=== PATIENT | female | born 1935 | race Caucasian/White ===

== ENCOUNTER 2016-09-22 21:06 | Inpatient (IN) | payer MEDICARE ==
[~2016-09-22] VITALS: Ht 154.9 cm; Wt 49.1 kg
[~2016-09-22 21:06] MED LIST: ALLEGRA-D 2424 HOUR PO; AMPHOTERICIN B NAB; ASPIRIN LOW DOS81 M2 PO; B-12250 MCG PO; BL ADULT ASA81 MG OR; BYSTOLIC5 MG PO; CALCIUM600 M1 PO; CHOLESTERO4 PO; CIPROFLOXACN500 MG PO; CLOPIDOGREL75 MG PO; COMBIVENT IN; COMBIVENT RESPIMAT IN; COUMADIN2.5 MG PO; COUMADIN5 MG PO; COUMADIN7.5 MG PO; CYCLOBENZAPR5 MG PO; DEPO-MEDROL40 MG/ML IJ; DIFLUCAN100 MG PO; DIGITEK0.125 MG PO; DIGOXIN0.125 MG PO; ECOTRIN325 MG OR; FLAX SEED1000 MG PO; FUROSEMIDE20 MG PO; GLUCOSAMINE1500 COM PO; ISRADIPINE2.5 MG PO; KLOR-CON M2020 MEQ PO; LIBRIUM25 MG OR; LORCET PLUS1 TAB OR; LORTAB 1010 MG PO; LOTRISONE TOP; MAXZIDE-2537.5 MG/TA PO; MICARDIS20 MG PO; MULTIVITAM10 PO; NITRO-DUR0.2 MG/HR TD; NITRO-DUR0.4 MG/HR TD; NORCO1 TA1 PO; NORCO1 TAB PO; NYSTATIN TOP; NYSTATIN100000 M4 TOP; PAROXETINE20 MG PO; PLAVIX75 MG PO; PRAMIPEXOLE0.5 MG PO; PROAIR HFA IN; PROCARDIA XL30 MG PO; PROTONIX40 M2 PO; PULMICORT0.25 MG/2 IN; PULMICORT180 MCG IN; QUESTRAN OR; ROXICET1 TA1 OR; SPIRIVA IN; SPIRIVA RE2.5 MCG/AC; SPIRIVA RE2.5 MCG/AC PO; SYNTHROID PO; SYNTHROID25 MCG PO; TIZANIDINE HCL2 M1 PO; TRAZODONE50 MG PO; TRIAM/NYSTAT TOP; TRIAMCINOLON0.11 EX; VITAMIN B-1250 MG PO; WARFARIN1 MG PO; WARFARIN2.5 MG PO; WARFARIN4 MG PO; WARFARIN5 MG PO; XANAX0.25 MG PO; XANAX0.5 MG PO; ZPAK PO; [UNRECOGNIZED DRUG - OTHER] VA
--- NOTE | 2016-09-22 21:10 | NUR ---
PT WHEELED STRAIGHT BACK TO ROOM 9 AND TRIAGED, EKG DONE. PT HAS FINE RASH UNDER LEFT BREAST THAT SPREADS TO RIGHT AND UP TO MID CHEST AND UNDER LEFT AXILLA. OBVIOUSLY PT HAS BEEN SCRATCHING. PT ALSO COMPLAINING OF PRESSURE TO CHEST. PT HAS HX OF MULTIPLE STENTS
[2016-09-22 21:50] LABS: HEMATOCRIT 35.3 % (37.0-47.0); HEMOGLOBIN 12.2 g/dl (12.0-16.0); IMMATURE GRANULOCYTES 0.6 % (0.0-1.0); MEAN CELL VOLUME 88.5 fL CALC (80.0-100.0); MEAN CORPUSCULAR HGB 30.6 pG CALC (26.0-32.0); MEAN CORPUSCULAR HGB CONC 34.6 g/L CALC (32.0-36.0); NEUT# 3.38 thou/uL (2.00-7.15); RED BLOOD COUNT 3.99 mill/uL (4.20-5.60); RED CELL DISTRI WIDTH 12.2 % (11.5-15.5)
--- NOTE | 2016-09-22 21:50 | NUR ---
PT HAS LONG LIST OF "ALLERGIES". DR ORDERED CATAPRES FOR PT DUE TO ELEVATED BP AND PT HAS MEDICATION LISTED ALLERGY BUT REACTION IS "FEELS TIRED" INSTRUCTED PT THAT IS NOT ALLERGY AND PT NEEDS MEDICATION TO LOWER BP AND SHE REFUSED NTG. PT AGREED TO TAKE MEDS.
[2016-09-22 21:53] LABS: ALBUMIN 5.2 g/dL (3.2-5.0); BILIRUBIN, TOTAL 0.9 mg/dL (0.0-1.4); CALCIUM 9.7 mg/dL (8.4-10.2); CREATININE 1.3 mg/dL (0.5-1.0); POTASSIUM 3.7 mmol/l (3.5-5.1); TOTAL PROTEIN 8.8 g/dL (6.3-8.2)
[2016-09-22 21:58] LABS: INTERNATIONAL NORMALIZED RATIO 1.9 RATIO (0.7-1.3); PROTHROMBIN TIME 21.3 SECONDS (9.0-12.5)
[2016-09-22 22:06] LABS: DIGOXIN 1.5 ng/mL (0.8-2.0)
--- NOTE | 2016-09-22 22:29 | NUR ---
B/P DOWN TO 182/88. PT POSSIBLE ADMISSION
--- NOTE | 2016-09-22 23:08 | NUR ---
PT TO BE ADMITTED. DR KINCAID IN WITH PT NOW. CHECKED ON PT 10 MINUTES AGO AND PT ALL UPSET DUE TO STILL ITCHING. PT'S ORIGINAL COMPLAINT WAS RASH. INFORMED PT SHE IS TO BE ADMITTED TO THE HOSPITAL AND WILL SPEAK WITH DR KINCAID ABOUT ORDERING HER BENADRYL
[2016-09-22] MEDS ORDERED: EFFIENT5 MG PO (23:20)
--- NOTE | 2016-09-22 23:45 | NUR ---
Admission Note Report Given to: LOGAN PARADA Transported by: Wheelchair X Stretcher Transported with: X Nurse Transporter X Patent IV X O2 X Freight Traffic Consultant PT REQUESTED HER EVENING XANAX DOSE, DR KINCAID STATED HE WOULD ORDER ONE TIME DOSE FOR THE FLOOR
--- NOTE | 2016-09-22 23:48 | NUR ---
female pt received to ICU bed 4 via stretcher accompanied by Trisha WillRN in stable condition; [place] [facility] [place] with steady gait; admission assessment completed at this time; pt alert and oriented; c/c of rash to epigastric area X4 days (pt relates rash to recently starting effient); pt also with complaints of left chest pressure; denies nausea/ vomiting/ diaphoresis; states pressure radiates to bilat jaw bone; resp even and unlabored; lungs clear; skin color wnl; o2 per nc; hr irreg; paced/ occ underline afib on monitor; strong pulses; no edema noted; abd soft with bs present; no bm noted per senior writer; voiding with difficultly starting stream and pain; urine clear yellow; #20 in lac flushed and patent; no redness or edema noted at site; plan of care/ xanax explained; rash noted to epigastric area; pt encouraged to use call light; will continue to monitor
[2016-09-23] VITALS (10 sets, daily range): BP systolic 126–195; BP diastolic 68–92
--- NOTE | 2016-09-23 00:20 | NUR ---
awake; no distress noted; iv intact; afib/occ paced on monitor; o2 per nc; call light within reach; will continue to monitor
--- NOTE | 2016-09-23 00:35 | NUR ---
Dr Stewart called per chief writer in regards to xanax order and complaints of pain; orders received and on chart
--- NOTE | 2016-09-23 00:55 | NUR ---
Xanax dosage and Lortab order explained to pt; pt denies allergies to acetaminophen; meds administered; will continue to monitor
--- NOTE | 2016-09-23 02:00 | NUR ---
resting with eyes closed; no distress noted; iv intact; paced on monitor; o2 per nc; call light within reach; will continue to monitor
--- NOTE | 2016-09-23 04:05 | NUR ---
awake; no distress noted; complaints of itching to epigastric area; paced on monitor; iv intact; o2 per nc; offers no complaints of chest pain; call light within reach; will continue to monitor
--- NOTE | 2016-09-23 06:05 | NUR ---
awake; sitting on side of bed; no distress noted; iv intact; paced on monitor; ra; offers no complaints of chest pain; ua sent to lab; bed in lowest position; call light within reach;
[2016-09-23 06:08] LABS: URINE BILIRUBIN - DIPSTICK NEGATIVE (NEGATIVE); URINE BLOOD DIPSTICK NEGATIVE (NEGATIVE); URINE CLARITY CLEAR; URINE COLOR YELLOW; URINE GLUCOSE - DIPSTICK NEGATIVE (NEGATIVE); URINE KETONE NEGATIVE (NEGATIVE); URINE LEUK ESTERASE NEGATIVE (NEGATIVE); URINE NITRITE - DIPSTICK NEGATIVE (Negative); URINE PH 7.5 (4.5-8.0); URINE PROTEIN - DIPSTICK NEGATIVE (NEG-TRACE); URINE UROBILINOGEN - DIPSTICK 0.2 E.U./dL (0.2)
--- NOTE | 2016-09-23 07:15 | NUR ---
PT ALERT AND ORIENTED RESTING IN BED, AM ASSESSMENT COMPLETED SEE INTERVENTIONS, SKIN IS WARM DRY AND INTACT, PT OOB INDEPENDENTLY TO USE BSC, REMINDED TO CALL FOR ASSISTANCE FOR SAFETY RELATED TO MONITORING EQUIPMENT ETC...TELE CONTINUES TO READ PACED WITH UNDERLYING RHYTHMN OF A FIB RATE IN THE 60-65 RANGE, OFFERS NO COMAPLINTS THIS AM UOTHER THAN CONTINUED ITCHING AT RASH SITE IN STERNAL AREA AND UNDER LEFT BREAST, PT STATES IS RELATED TO MEDICATION THAT THE [employer] PSYCHOLOGIST STARTED ME SHARON BOUT A WEEK AGO, 20 G SALINE LOCK INTACT IN LEFT AC, O2 ON AT 2L VIA NC FOR CP PROTOCOL, PT DENIES O2 USAGE AT HOME AND SATS 100% WITH NO COMPLAINTS OF SOB AND NO DISTRESS NOTED, AFEBRILE THIS AM , OFFERS NO OTHER COMPLAINTS, SAFETY MEASURES REINFORCED, CALL CORTEZ WITHIN REACH, ENCOURAGED TO CALL FOR ANY NEEDED ASSISTANCE.
--- NOTE | 2016-09-23 07:40 | NUR ---
SET UP ASSIST PROVIDED FOR AM MEAL
--- NOTE | 2016-09-23 08:29 | NUR ---
PT TOLERATED AM MEAL W/O INCIDENT, BP IMPROVED THIS AM, EDUCATED REGARDING USUAL SCHEDULE FOR MD ROUNDS THIS AM. VERBALIZES PERIODS OF INTERMITTENT ITCHING TO TO STERNAL RASH NO OTHER COMPLAINTS OFFERED, WILL CONTINUE TO MONITOR.
--- NOTE | 2016-09-23 09:16 | NUR ---
IN TO SEE PATIENT, PLAN OF CARE DISCUSSED
[2016-09-23] MEDS ORDERED: LOTRISONE TOP (09:44)
[2016-09-23] MEDS ORDERED: MEDDOSEPAK PO (09:44)
--- NOTE | 2016-09-23 09:50 | NUR ---
LAB AT BEDSIDE DRAWING TROPONIN ORDERED, PT TOELRATED WITHOUT INCIDENT
--- NOTE | 2016-09-23 11:24 | NUR ---
Discharge instructions given. Patient verbalizes understanding of same. Discharged in stable condition via Wheelchair to Home with family. All belongings sent with pt. SCRIPTS SENT WITH PATIENT
== END 2016-09-23 11:25 | disposition home or self-care (01) | DRG 313 ==
LOC: ENPENDDIS → ED 21:06 → ED-I 21:26 → ED 21:26 → ED-I 22:20 → ED 22:51 → ICU 22:52
PROVIDERS: Emergency Medicine; ADMIT Internal Medicine Geriatric Medicine; ATTEND Internal Medicine Geriatric Medicine
DX: R07.9 Chest pain, unspecified (principal); I25.10 Atherosclerotic heart disease of native coronary artery without angina pectoris; J44.9 Chronic obstructive pulmonary disease, unspecified; I48.91 Unspecified atrial fibrillation; I10 Essential (primary) hypertension; L27.0 Generalized skin eruption due to drugs and medicaments taken internally; T50.905A Adverse effect of unspecified drugs, medicaments and biological substances, initial encounter; M19.90 Unspecified osteoarthritis, unspecified site; F41.9 Anxiety disorder, unspecified; E03.9 Hypothyroidism, unspecified; K21.9 Gastro-esophageal reflux disease without esophagitis; G89.29 Other chronic pain; Z95.5 Presence of coronary angioplasty implant and graft; Z95.810 Presence of automatic (implantable) cardiac defibrillator

== ENCOUNTER 2017-03-14 09:14 | Emergency (ER) | payer MEDICARE ==
[~2017-03-14] VITALS: Ht 154.9 cm; Wt 55.0 kg
[~2017-03-14 09:14] MED LIST changes: +EFFIENT5 MG PO; +MEDDOSEPAK PO
[2017-03-14] MEDS ORDERED: WARFARIN2.5 MG PO (10:16)
[2017-03-14] MEDS ORDERED: ALPRAZOLAM0.5 MG PO (10:19)
[2017-03-14] MEDS ORDERED: FUROSEMIDE20 MG PO (10:21)
[2017-03-14] MEDS ORDERED: MAXZIDE-2537.5 MG/TA PO (10:22)
[2017-03-14] MEDS ORDERED: PERCOCET 5/325M1 TAB PO (10:51)
[2017-03-14] MEDS ORDERED: DILAUDID2 MG PO (11:00)
[2017-03-14 11:10] VITALS: BP 187/81
== END 2017-03-14 11:10 | disposition home or self-care (01) ==
LOC: ED 09:14
DX: S22.41XA Multiple fractures of ribs, right side, initial encounter for closed fracture (principal); W01.0XXA Fall on same level from slipping, tripping and stumbling without subsequent striking against object, initial encounter; Y93.E8 Activity, other personal hygiene; Y92.002 Bathroom of unspecified non-institutional (private) residence as the place of occurrence of the external cause

== ENCOUNTER 2017-09-21 07:58 | Inpatient (IN) | payer MEDICARE ==
[~2017-09-21] VITALS: Ht 154.9 cm; Wt 51.3 kg
[~2017-09-21 07:58] MED LIST changes: +ALPRAZOLAM0.5 MG PO; +DILAUDID2 MG PO; +PERCOCET 5/325M1 TAB PO
[2017-09-21] MEDS ORDERED: CYCLOBENZAPR10 MG PO (08:30)
[2017-09-21] MEDS ORDERED: CLONIDINE0.1 MG PO (08:30)
[2017-09-21] MEDS ORDERED: ROPINIROLE0.5 MG PO (08:30)
[2017-09-21] MEDS ORDERED: POTASSIMIN75 MG PO (08:31)
[2017-09-21] MEDS ORDERED: SPIRIVA IN (08:35)
[2017-09-21] MEDS ORDERED: SYNTHROID25 MCG PO (08:37)
[2017-09-21 09:09] LABS: HEMATOCRIT 34.3 % (37.0-47.0); HEMOGLOBIN 11.4 g/dl (12.0-16.0); IMMATURE GRANULOCYTES 0.3 % (0.0-1.0); MEAN CELL VOLUME 93.7 fL CALC (80.0-100.0); MEAN CORPUSCULAR HGB 31.1 pG CALC (26.0-32.0); MEAN CORPUSCULAR HGB CONC 33.2 g/L CALC (32.0-36.0); NEUT# 8.01 thou/uL (2.00-7.15); RED BLOOD COUNT 3.66 mill/uL (4.20-5.60); RED CELL DISTRI WIDTH 12.9 % (11.5-15.5)
[2017-09-21 09:18] LABS: CREATININE 1.1 mg/dL (0.5-1.0); POTASSIUM 3.8 mmol/l (3.5-5.1)
[2017-09-21 14:31] VITALS: BP 145/88
[2017-09-21 19:07] VITALS: BP 115/71
[2017-09-22 04:46] LABS: HEMATOCRIT 32.5 % (37.0-47.0); HEMOGLOBIN 10.5 g/dl (12.0-16.0); IMMATURE GRANULOCYTES 0.3 % (0.0-1.0); MEAN CELL VOLUME 93.7 fL CALC (80.0-100.0); MEAN CORPUSCULAR HGB 30.3 pG CALC (26.0-32.0); MEAN CORPUSCULAR HGB CONC 32.3 g/L CALC (32.0-36.0); NEUT# 4.75 thou/uL (2.00-7.15); RED BLOOD COUNT 3.47 mill/uL (4.20-5.60)
[2017-09-22 05:00] VITALS: BP 162/81
[2017-09-22 05:08] LABS: INTERNATIONAL NORMALIZED RATIO 3.8 RATIO (0.7-1.3); PROTHROMBIN TIME 44.1 SECONDS (9.0-12.5)
[2017-09-22 05:14] LABS: BILIRUBIN, TOTAL 0.5 mg/dL (0.0-1.4); CHOLESTEROL HDL RATIO 5.5 (<4.4 (CALC)); CREATININE 1.3 mg/dL (0.5-1.0); POTASSIUM 4.3 mmol/l (3.5-5.1); TOTAL PROTEIN 6.5 g/dL (6.3-8.2)
[2017-09-22 05:15] VITALS: BP 162/81
[2017-09-22 05:17] LABS: ALBUMIN 3.5 g/dL (3.2-5.0)
[2017-09-22 05:40] LABS: TSH, 3RD GENERATION 0.5 uIU/mL (0.47 - 4.68)
[2017-09-22 08:25] VITALS: BP 150/69
[2017-09-22 14:47] VITALS: BP 161/79
[2017-09-22 19:15] VITALS: BP 117/68
[2017-09-23 04:22] VITALS: BP 181/79
[2017-09-23 05:36] LABS: INTERNATIONAL NORMALIZED RATIO 2.3 RATIO (0.7-1.3); PROTHROMBIN TIME 25.6 SECONDS (9.0-12.5)
[2017-09-23 08:30] VITALS: BP 104/56
[2017-09-23 08:36] LABS: HEMATOCRIT 34.8 % (37.0-47.0); HEMOGLOBIN 11.4 g/dl (12.0-16.0); IMMATURE GRANULOCYTES 0.1 % (0.0-1.0); MEAN CELL VOLUME 93.8 fL CALC (80.0-100.0); MEAN CORPUSCULAR HGB 30.7 pG CALC (26.0-32.0); MEAN CORPUSCULAR HGB CONC 32.8 g/L CALC (32.0-36.0); NEUT# 4.92 thou/uL (2.00-7.15); RED BLOOD COUNT 3.71 mill/uL (4.20-5.60); RED CELL DISTRI WIDTH 12.8 % (11.5-15.5)
[2017-09-23 08:46] LABS: ALBUMIN 3.5 g/dL (3.2-5.0); CREATININE 1.1 mg/dL (0.5-1.0); TOTAL PROTEIN 6.7 g/dL (6.3-8.2)
[2017-09-23 16:05] VITALS: BP 177/74
[2017-09-23 19:30] VITALS: BP 152/72
[2017-09-24] VITALS (15 sets, daily range): BP systolic 125–218; BP diastolic 56–110
[2017-09-24 05:22] LABS: HEMATOCRIT 32.9 % (37.0-47.0); HEMOGLOBIN 11.2 g/dl (12.0-16.0); IMMATURE GRANULOCYTES 0.2 % (0.0-1.0); MEAN CELL VOLUME 92.2 fL CALC (80.0-100.0); MEAN CORPUSCULAR HGB 31.4 pG CALC (26.0-32.0); NEUT# 3.25 thou/uL (2.00-7.15); RED BLOOD COUNT 3.57 mill/uL (4.20-5.60); RED CELL DISTRI WIDTH 12.6 % (11.5-15.5)
[2017-09-24 05:26] LABS: ALBUMIN 3.2 g/dL (3.2-5.0); ALKALINE PHOSPHATASE 53 u/l (38-126); ANION GAP 14 (6-22 (CALC)); BILIRUBIN, TOTAL 0.7 mg/dL (0.0-1.4); BUN 11 mg/dL (8-23); BUN/CREATININE RATIO 12 (12-20 (CALC)); CARBON DIOXIDE 30 mmol/l (22-30); CHLORIDE 97 mmol/l (95-108); CREATININE 0.9 mg/dL (0.5-1.0); GFR 60 ML/MIN (>=60 (CALC)); GFR FOR AFR.AMER. > 60 ML/MIN (>=60 (CALC)); POTASSIUM 4.2 mmol/l (3.5-5.1); SGOT/AST 19 u/l (9-36); SGPT/ALT 26 u/l (11-66); SODIUM 136 mmol/l (137-146); TOTAL PROTEIN 6.3 g/dL (6.3-8.2)
[2017-09-24 05:35] LABS: URINE BILIRUBIN - DIPSTICK NEGATIVE (NEGATIVE); URINE BLOOD DIPSTICK TRACE-INTACT (NEGATIVE); URINE CLARITY SL CLOUDY; URINE COLOR YELLOW; URINE GLUCOSE - DIPSTICK NEGATIVE (NEGATIVE); URINE KETONE NEGATIVE (NEGATIVE); URINE LEUK ESTERASE MODERATE (NEGATIVE); URINE NITRITE - DIPSTICK NEGATIVE (Negative); URINE PROTEIN - DIPSTICK NEGATIVE (NEG-TRACE); URINE SPECIFIC GRAVITY <=1.005; URINE UROBILINOGEN - DIPSTICK 0.2 E.U./dL (0.2)
[2017-09-24 05:43] LABS: URINE BACTERIA FEW hpf; URINE SQUAMOUS EPITHELIAL CELL FEW EPI/hpf (0-FEW)
[2017-09-24 05:56] LABS: INTERNATIONAL NORMALIZED RATIO 1.5 RATIO (0.7-1.3); PROTHROMBIN TIME 16.8 SECONDS (9.0-12.5)
[2017-09-25] VITALS (7 sets, daily range): BP systolic 112–191; BP diastolic 56–86
[2017-09-25 04:55] LABS: INTERNATIONAL NORMALIZED RATIO 1.2 RATIO (0.7-1.3)
[2017-09-25 04:56] LABS: ALKALINE PHOSPHATASE 48 u/l (38-126); ANION GAP 14 (6-22 (CALC)); BILIRUBIN, TOTAL 0.9 mg/dL (0.0-1.4); BUN 9 mg/dL (8-23); BUN/CREATININE RATIO 11 (12-20 (CALC)); CARBON DIOXIDE 29 mmol/l (22-30); CHLORIDE 97 mmol/l (95-108); CREATININE 0.8 mg/dL (0.5-1.0); GFR > 60 ML/MIN (>=60 (CALC)); GFR FOR AFR.AMER. > 60 ML/MIN (>=60 (CALC)); POTASSIUM 4.5 mmol/l (3.5-5.1); SGOT/AST 17 u/l (9-36); SGPT/ALT 29 u/l (11-66); SODIUM 136 mmol/l (137-146)
[2017-09-25 04:57] LABS: HEMATOCRIT 30.8 % (37.0-47.0); HEMOGLOBIN 10.2 g/dl (12.0-16.0); IMMATURE GRANULOCYTES 0.5 % (0.0-1.0); MEAN CELL VOLUME 93.3 fL CALC (80.0-100.0); MEAN CORPUSCULAR HGB 30.9 pG CALC (26.0-32.0); MEAN CORPUSCULAR HGB CONC 33.1 g/L CALC (32.0-36.0); NEUT# 3.98 thou/uL (2.00-7.15); RED BLOOD COUNT 3.3 mill/uL (4.20-5.60); RED CELL DISTRI WIDTH 12.5 % (11.5-15.5)
[2017-09-25 05:02] LABS: PROTHROMBIN TIME 13.1 SECONDS (9.0-12.5)
[2017-09-26 05:49] LABS: HEMOGLOBIN 9.8 g/dl (12.0-16.0); IMMATURE GRANULOCYTES 0.2 % (0.0-1.0); MEAN CELL VOLUME 94.3 fL CALC (80.0-100.0); MEAN CORPUSCULAR HGB 30.8 pG CALC (26.0-32.0); MEAN CORPUSCULAR HGB CONC 32.7 g/L CALC (32.0-36.0); NEUT# 3.46 thou/uL (2.00-7.15); RED BLOOD COUNT 3.18 mill/uL (4.20-5.60); RED CELL DISTRI WIDTH 12.6 % (11.5-15.5)
[2017-09-26 06:15] LABS: ANION GAP 13 (6-22 (CALC)); BUN 8 mg/dL (8-23); BUN/CREATININE RATIO 9 (12-20 (CALC)); CARBON DIOXIDE 29 mmol/l (22-30); CHLORIDE 97 mmol/l (95-108); CREATININE 0.9 mg/dL (0.5-1.0); GFR 60 ML/MIN (>=60 (CALC)); GFR FOR AFR.AMER. > 60 ML/MIN (>=60 (CALC)); POTASSIUM 3.9 mmol/l (3.5-5.1); SODIUM 135 mmol/l (137-146)
[2017-09-26 07:45] VITALS: BP 169/83
[2017-09-26 16:44] VITALS: BP 123/76
[2017-09-26 16:48] VITALS: BP 182/82
[2017-09-26 17:00] VITALS: BP 182/82
== END 2017-09-26 17:42 | DRG 481 ==
LOC: ED 07:58 → ED-I 12:22 → ED 13:09 → MS2 13:10
PROVIDERS: Family Medicine; ADMIT Internal Medicine Geriatric Medicine; ATTEND Internal Medicine Geriatric Medicine
PROC: 0T9B70Z Drainage of Bladder with Drainage Device, Via Natural or Artificial Opening (ICD-10-PCS; 2017-09-23)
PROC: 0QS704Z Reposition Left Upper Femur with Internal Fixation Device, Open Approach (ICD-10-PCS; principal; 2017-09-24)
DX: S72.012A Unspecified intracapsular fracture of left femur, initial encounter for closed fracture (principal); F11.20 Opioid dependence, uncomplicated; I48.2 Chronic atrial fibrillation; I11.0 Hypertensive heart disease with heart failure; I50.9 Heart failure, unspecified; J44.9 Chronic obstructive pulmonary disease, unspecified; I25.10 Atherosclerotic heart disease of native coronary artery without angina pectoris; G89.29 Other chronic pain; E03.9 Hypothyroidism, unspecified; M19.90 Unspecified osteoarthritis, unspecified site; F41.9 Anxiety disorder, unspecified; K21.9 Gastro-esophageal reflux disease without esophagitis; R41.0 Disorientation, unspecified; W06.XXXA Fall from bed, initial encounter; Y92.009 Unspecified place in unspecified non-institutional (private) residence as the place of occurrence of the external cause; Z95.810 Presence of automatic (implantable) cardiac defibrillator; Z88.9 Allergy status to unspecified drugs, medicaments and biological substances; Z79.01 Long term (current) use of anticoagulants; Z87.11 Personal history of peptic ulcer disease; Z95.5 Presence of coronary angioplasty implant and graft
CPT/HCPCS: G0378

== ENCOUNTER 2017-10-21 18:58 | Inpatient (IN) | payer MEDICARE ==
[~2017-10-21] VITALS: Ht 160 cm; Wt 50.0 kg
[~2017-10-21 18:58] MED LIST changes: +CLONIDINE0.1 MG PO; +CYCLOBENZAPR10 MG PO; +POTASSIMIN75 MG PO; +ROPINIROLE0.5 MG PO
[2017-10-21] MEDS ORDERED: BYSTOLIC5 MG PO (19:29)
[2017-10-21 19:35] LABS: HEMATOCRIT 32.5 % (37.0-47.0); HEMOGLOBIN 10.6 g/dl (12.0-16.0); IMMATURE GRANULOCYTES 0.4 % (0.0-1.0); MEAN CELL VOLUME 93.4 fL CALC (80.0-100.0); MEAN CORPUSCULAR HGB 30.5 pG CALC (26.0-32.0); MEAN CORPUSCULAR HGB CONC 32.6 g/L CALC (32.0-36.0); NEUT# 3.98 thou/uL (2.00-7.15); RED BLOOD COUNT 3.48 mill/uL (4.20-5.60); RED CELL DISTRI WIDTH 13.4 % (11.5-15.5)
[2017-10-21 19:53] LABS: ALKALINE PHOSPHATASE 66 u/l (38-126); ANION GAP 15 (6-22 (CALC)); BILIRUBIN, TOTAL 0.8 mg/dL (0.0-1.4); BUN 8 mg/dL (8-23); BUN/CREATININE RATIO 8 (12-20 (CALC)); CARBON DIOXIDE 26 mmol/l (22-30); CHLORIDE 100 mmol/l (95-108); CREATININE 0.9 mg/dL (0.5-1.0); GFR 60 ML/MIN (>=60 (CALC)); GFR FOR AFR.AMER. > 60 ML/MIN (>=60 (CALC)); POTASSIUM 4.5 mmol/l (3.5-5.1); SGOT/AST 26 u/l (9-36); SGPT/ALT 32 u/l (11-66); SODIUM 136 mmol/l (137-146)
[2017-10-21 19:54] LABS: INTERNATIONAL NORMALIZED RATIO 1.2 RATIO (0.7-1.3); PROTHROMBIN TIME 13.3 SECONDS (9.0-12.5)
[2017-10-21 19:57] LABS: ALBUMIN 4.5 g/dL (3.2-5.0); TOTAL PROTEIN 8.3 g/dL (6.3-8.2)
[2017-10-21 20:04] LABS: MYOGLOBIN 49 ng/mL (0 - 62)
[2017-10-21 20:05] LABS: URINE BILIRUBIN - DIPSTICK NEGATIVE (NEGATIVE); URINE BLOOD DIPSTICK NEGATIVE (NEGATIVE); URINE COLOR YELLOW; URINE GLUCOSE - DIPSTICK NEGATIVE (NEGATIVE); URINE KETONE NEGATIVE (NEGATIVE); URINE LEUK ESTERASE NEGATIVE (NEGATIVE); URINE NITRITE - DIPSTICK NEGATIVE (Negative); URINE PROTEIN - DIPSTICK 30 mg/dL (NEG-TRACE); URINE SPECIFIC GRAVITY 1.015; URINE UROBILINOGEN - DIPSTICK 0.2 E.U./dL (0.2)
[2017-10-21 20:08] LABS: COCAINE NEGATIVE (NEGATIVE); METHADONE NEGATIVE (NEGATIVE); TETRAHYDROCANNABIONOL NEGATIVE (NEGATIVE)
[2017-10-21 20:09] LABS: BARBITURATES NEGATIVE (NEGATIVE); OXCYCODONE NEGATIVE (NEGATIVE); TRICYLIC ANTIDEPRESSANTS NEGATIVE (NEGATIVE)
[2017-10-21 20:14] LABS: URINE CLARITY CLEAR; URINE RBC 0-2 RBC/hpf (0-5); URINE SQUAMOUS EPITHELIAL CELL FEW EPI/hpf (0-FEW); URINE WBC 0-2 WBC/hpf (0-5)
[2017-10-21 22:30] VITALS: BP 189/87
[2017-10-21 22:45] VITALS: BP 124/92
[2017-10-21 23:00] VITALS: BP 179/73
[2017-10-21 23:15] VITALS: BP 194/84
[2017-10-22] VITALS (19 sets, daily range): BP systolic 103–198; BP diastolic 55–99
[2017-10-22 06:19] LABS: HEMATOCRIT 33.4 % (37.0-47.0); IMMATURE GRANULOCYTES 0.3 % (0.0-1.0); MEAN CELL VOLUME 92.8 fL CALC (80.0-100.0); MEAN CORPUSCULAR HGB 30.6 pG CALC (26.0-32.0); MEAN CORPUSCULAR HGB CONC 32.9 g/L CALC (32.0-36.0); NEUT# 4.22 thou/uL (2.00-7.15); RED BLOOD COUNT 3.6 mill/uL (4.20-5.60); RED CELL DISTRI WIDTH 13.3 % (11.5-15.5)
[2017-10-22 06:26] LABS: ANION GAP 12 (6-22 (CALC)); BUN 8 mg/dL (8-23); BUN/CREATININE RATIO 10 (12-20 (CALC)); CARBON DIOXIDE 28 mmol/l (22-30); CHLORIDE 105 mmol/l (95-108); CREATININE 0.8 mg/dL (0.5-1.0); GFR > 60 ML/MIN (>=60 (CALC)); GFR FOR AFR.AMER. > 60 ML/MIN (>=60 (CALC)); POTASSIUM 3.9 mmol/l (3.5-5.1); SODIUM 141 mmol/l (137-146)
[2017-10-23 05:33] LABS: HEMATOCRIT 35.6 % (37.0-47.0); HEMOGLOBIN 11.6 g/dl (12.0-16.0); IMMATURE GRANULOCYTES 0.3 % (0.0-1.0); MEAN CORPUSCULAR HGB 30.3 pG CALC (26.0-32.0); MEAN CORPUSCULAR HGB CONC 32.6 g/L CALC (32.0-36.0); NEUT# 3.59 thou/uL (2.00-7.15); RED BLOOD COUNT 3.83 mill/uL (4.20-5.60); RED CELL DISTRI WIDTH 13.4 % (11.5-15.5)
[2017-10-23 05:42] LABS: ANION GAP 13 (6-22 (CALC)); BUN 12 mg/dL (8-23); BUN/CREATININE RATIO 14 (12-20 (CALC)); CARBON DIOXIDE 31 mmol/l (22-30); CHLORIDE 97 mmol/l (95-108); CREATININE 0.9 mg/dL (0.5-1.0); GFR 60 ML/MIN (>=60 (CALC)); GFR FOR AFR.AMER. > 60 ML/MIN (>=60 (CALC)); POTASSIUM 3.7 mmol/l (3.5-5.1); SODIUM 138 mmol/l (137-146)
[2017-10-23 06:15] VITALS: BP 152/72
[2017-10-23 08:08] VITALS: BP 123/60
[2017-10-23 10:18] VITALS: BP 172/98
[2017-10-23 11:24] VITALS: BP 177/82
[2017-10-23 14:13] VITALS: BP 155/79
[2017-10-23 19:00] VITALS: BP 156/76
[2017-10-24 04:38] VITALS: BP 148/70
[2017-10-24 06:14] LABS: HEMATOCRIT 32.8 % (37.0-47.0); HEMOGLOBIN 10.9 g/dl (12.0-16.0); IMMATURE GRANULOCYTES 0.3 % (0.0-1.0); MEAN CELL VOLUME 91.6 fL CALC (80.0-100.0); MEAN CORPUSCULAR HGB 30.4 pG CALC (26.0-32.0); MEAN CORPUSCULAR HGB CONC 33.2 g/L CALC (32.0-36.0); NEUT# 3.61 thou/uL (2.00-7.15); RED BLOOD COUNT 3.58 mill/uL (4.20-5.60); RED CELL DISTRI WIDTH 13.1 % (11.5-15.5)
[2017-10-24 06:29] LABS: ANION GAP 11 (6-22 (CALC)); BUN 12 mg/dL (8-23); BUN/CREATININE RATIO 13 (12-20 (CALC)); CARBON DIOXIDE 30 mmol/l (22-30); CHLORIDE 95 mmol/l (95-108); CREATININE 0.9 mg/dL (0.5-1.0); GFR 60 ML/MIN (>=60 (CALC)); GFR FOR AFR.AMER. > 60 ML/MIN (>=60 (CALC)); POTASSIUM 3.6 mmol/l (3.5-5.1); SODIUM 133 mmol/l (137-146)
[2017-10-24 09:00] VITALS: BP 185/75
[2017-10-24 15:12] VITALS: BP 128/60
[2017-10-24 19:33] VITALS: BP 180/92
[2017-10-25 00:30] VITALS: BP 156/77
[2017-10-25 03:50] VITALS: BP 155/78
[2017-10-25 09:01] VITALS: BP 121/67
[2017-10-25 11:18] VITALS: BP 163/77
[2017-10-25 15:46] VITALS: BP 156/75
[2017-10-26 05:22] VITALS: BP 150/70
[2017-10-26 05:28] LABS: HEMATOCRIT 35.1 % (37.0-47.0); HEMOGLOBIN 11.8 g/dl (12.0-16.0); IMMATURE GRANULOCYTES 0.3 % (0.0-1.0); MEAN CELL VOLUME 91.2 fL CALC (80.0-100.0); MEAN CORPUSCULAR HGB 30.6 pG CALC (26.0-32.0); MEAN CORPUSCULAR HGB CONC 33.6 g/L CALC (32.0-36.0); NEUT# 6.24 thou/uL (2.00-7.15); RED BLOOD COUNT 3.85 mill/uL (4.20-5.60); RED CELL DISTRI WIDTH 13.1 % (11.5-15.5)
[2017-10-26 05:44] LABS: CREATININE 1.1 mg/dL (0.5-1.0); POTASSIUM 3.8 mmol/l (3.5-5.1)
[2017-10-26 07:54] VITALS: BP 184/87
[2017-10-26 16:05] VITALS: BP 185/92
[2017-10-26 20:00] VITALS: BP 190/88
[2017-10-27 06:00] VITALS: BP 196/90
[2017-10-27 14:29] VITALS: BP 126/76
== END 2017-10-27 19:45 | DRG 887 ==
LOC: ED 18:58 → ED-I 21:15 → ED 22:04 → ICU 22:05 → ED-I 22:05 → ICU 10-22 06:05 → MS2 10-23 11:15 → ICU 10-26 10:15
PROVIDERS: Emergency Medicine; ADMIT Internal Medicine Geriatric Medicine; ATTEND Internal Medicine Geriatric Medicine
DX: F44.89 Other dissociative and conversion disorders (principal); R44.3 Hallucinations, unspecified; F11.20 Opioid dependence, uncomplicated; I10 Essential (primary) hypertension; F41.1 Generalized anxiety disorder; F32.9 Major depressive disorder, single episode, unspecified; G89.29 Other chronic pain; J44.9 Chronic obstructive pulmonary disease, unspecified; I25.10 Atherosclerotic heart disease of native coronary artery without angina pectoris; I48.91 Unspecified atrial fibrillation; M19.90 Unspecified osteoarthritis, unspecified site; K27.9 Peptic ulcer, site unspecified, unspecified as acute or chronic, without hemorrhage or perforation; K21.9 Gastro-esophageal reflux disease without esophagitis; E03.9 Hypothyroidism, unspecified; Z95.810 Presence of automatic (implantable) cardiac defibrillator; Z95.5 Presence of coronary angioplasty implant and graft; Z87.440 Personal history of urinary (tract) infections; Z91.81 History of falling
CPT/HCPCS: J2060; S0166

== ENCOUNTER 2018-05-12 10:08 | Observation (INO) | payer MEDICARE ==
[~2018-05-12] VITALS: Ht 154.9 cm; Wt 45.0 kg
[2018-05-12] VITALS (7 sets, daily range): BP systolic 137–188; BP diastolic 55–91
[~2018-05-12 10:08] MED LIST changes: +SPIRIVA PO
[2018-05-12 11:06] LABS: HEMATOCRIT 39.3 % (37.0-47.0); HEMOGLOBIN 13.1 g/dl (12.0-16.0); IMMATURE GRANULOCYTES 0.2 % (0.0-5.0); MEAN CELL VOLUME 88.1 fL CALC (80.0-100.0); MEAN CORPUSCULAR HGB 29.4 pG CALC (26.0-32.0); MEAN CORPUSCULAR HGB CONC 33.3 g/L CALC (32.0-36.0); NEUT# 4.78 thou/uL (2.00-7.15); RED BLOOD COUNT 4.46 mill/uL (4.20-5.60); RED CELL DISTRI WIDTH 13.6 % (11.5-15.5)
[2018-05-12 11:52] LABS: CREATININE 1.9 mg/dL (0.5-1.0); POTASSIUM 3.7 mmol/l (3.5-5.1)
[2018-05-13] VITALS (11 sets, daily range): BP systolic 110–197; BP diastolic 47–81
[2018-05-13 07:42] LABS: IMMATURE GRANULOCYTES 0.1 % (0.0-5.0); MEAN CELL VOLUME 88.4 fL CALC (80.0-100.0); MEAN CORPUSCULAR HGB 29.5 pG CALC (26.0-32.0); MEAN CORPUSCULAR HGB CONC 33.3 g/L CALC (32.0-36.0); NEUT# 6.69 thou/uL (2.00-7.15); RED BLOOD COUNT 4.41 mill/uL (4.20-5.60); RED CELL DISTRI WIDTH 13.8 % (11.5-15.5)
[2018-05-13 08:22] LABS: ALBUMIN 3.8 g/dL (3.2-5.0); ALKALINE PHOSPHATASE 81 u/l (38-126); ANION GAP 14 (6-22 (CALC)); BUN 9 mg/dL (8-23); CARBON DIOXIDE 28 mmol/l (22-30); CHLORIDE 97 mmol/l (95-108); POTASSIUM 3.3 mmol/l (3.5-5.1); SGOT/AST 28 u/l (9-36); SODIUM 135 mmol/l (137-146)
[2018-05-13 08:28] LABS: BUN/CREATININE RATIO 11 (12-20 (CALC)); CREATININE 0.8 mg/dL (0.5-1.0); GFR > 60 ML/MIN (>=60 (CALC)); GFR FOR AFR.AMER. > 60 ML/MIN (>=60 (CALC))
[2018-05-13] MEDS ORDERED: TENORMIN PO (17:00)
[2018-05-14] VITALS (7 sets, daily range): BP systolic 103–218; BP diastolic 45–98
[2018-05-14 08:34] LABS: URINE BILIRUBIN - DIPSTICK NEGATIVE (NEGATIVE); URINE BLOOD DIPSTICK NEGATIVE (NEGATIVE); URINE COLOR YELLOW; URINE GLUCOSE - DIPSTICK NEGATIVE (NEGATIVE); URINE KETONE NEGATIVE (NEGATIVE); URINE LEUK ESTERASE NEGATIVE (Negative); URINE NITRITE - DIPSTICK NEGATIVE (Negative); URINE PH 5.5 (4.5-8.0); URINE PROTEIN - DIPSTICK NEGATIVE (NEG-TRACE); URINE UROBILINOGEN - DIPSTICK 0.2 E.U./dL (0.2)
[2018-05-14 08:37] LABS: URINE CLARITY CLEAR
[2018-05-14] MEDS ORDERED: BYSTOLIC5 MG PO (15:43)
[2018-05-14] MEDS ORDERED: ALPRAZOLAM0.5 MG PO (15:44)
[2018-05-14] MEDS ORDERED: POTASSIMIN75 MG PO (15:44)
[2018-05-14] MEDS ORDERED: PROTONIX40 M2 PO (15:44)
[2018-05-14] MEDS ORDERED: SEROQUEL25 MG PO (15:47)
== END 2018-05-14 17:15 | disposition home or self-care (01) ==
LOC: MS2 10:08
PROVIDERS: ADMIT Internal Medicine Geriatric Medicine; ATTEND Internal Medicine Geriatric Medicine
DX: E86.0 Dehydration (principal); F22 Delusional disorders; R44.3 Hallucinations, unspecified; I11.0 Hypertensive heart disease with heart failure; I50.9 Heart failure, unspecified; I25.10 Atherosclerotic heart disease of native coronary artery without angina pectoris; F41.1 Generalized anxiety disorder; F32.9 Major depressive disorder, single episode, unspecified; J44.9 Chronic obstructive pulmonary disease, unspecified; E03.9 Hypothyroidism, unspecified; I48.91 Unspecified atrial fibrillation; Z95.810 Presence of automatic (implantable) cardiac defibrillator; Z95.5 Presence of coronary angioplasty implant and graft; Z91.81 History of falling
CPT/HCPCS: J2060

== ENCOUNTER 2018-06-17 10:22 | Observation (INO) | payer MEDICARE ==
[~2018-06-17] VITALS: Ht 154.9 cm; Wt 47.0 kg
[~2018-06-17 10:22] MED LIST changes: +ASPIRIN 8181 MG PO; -ASPIRIN LOW DOS81 M2 PO; +SEROQUEL25 MG PO; +SYNTHROID125 MCG PO; +TENORMIN PO
--- NOTE | 2018-06-17 10:35 | NUR ---
PT ARRIVED TO FLOOR VIA WHEELCHAIR ACCOMPANIED BY VOLUNTEER. PT AMBULATES W/ UNSTEADY GAIT. GENERALIZED WEAKNESS NOTED. FALL PRECAUTIONS REINFORCED. PLAN OF CARE DISCUSSED. PT APPEARS UPSET. STATES TOLD HER LAST NIGHT THEY WERE GETTING A DIVORCE. EMOTIONAL COMFORT PROVIDED. BP 174/112 MANUALLY. CLONIDINE 0.2 MG PO ADMINISTERED PER DR. VALLE. CALL LIGHT REVIEWED AND IN REACH. PT STATES UNDERSTANDING.
[2018-06-17 11:17] LABS: HEMATOCRIT 36.5 % (37.0-47.0); HEMOGLOBIN 12.1 g/dl (12.0-16.0); IMMATURE GRANULOCYTES 0.3 % (0.0-5.0); MEAN CELL VOLUME 86.3 fL CALC (80.0-100.0); MEAN CORPUSCULAR HGB 28.6 pG CALC (26.0-32.0); MEAN CORPUSCULAR HGB CONC 33.2 g/L CALC (32.0-36.0); NEUT# 5.22 thou/uL (2.00-7.15); RED BLOOD COUNT 4.23 mill/uL (4.20-5.60)
[2018-06-17 11:48] LABS: CREATININE 1.2 mg/dL (0.5-1.0); POTASSIUM 3.9 mmol/l (3.5-5.1)
--- NOTE | 2018-06-17 14:58 | NUR ---
PT RESTING IN SUPINE POSITION WITH EYES CLOSED; NO S/SX OF DISTRESS NOTED; CALL CORTEZ WITHIN REACH; WILL CONTINUE TO MONITOR.
[2018-06-17 16:38] VITALS: BP 158/74
[2018-06-17] MEDS ORDERED: XANAX0.5 MG PO (16:41)
--- NOTE | 2018-06-17 16:43 | NUR ---
PT RESTING WITH EYES CLOSED; VISITOR IN ROOM; CALL CORTEZ WITHIN REACH; WILL COTNINUE TO MONITOR.
[2018-06-17] MEDS ORDERED: ALLEGRA-D 2424 HOUR PO (17:02)
--- NOTE | 2018-06-17 17:38 | NUR ---
REPORT RECIEVED FROM RADHAMES FORD. PT RESTING IN BED W/ EYES CLOSED. RESPIRATIONS EVEN AND UNLABORED. BED ALARM ACTIVE FOR PT SAFETY. WILL CONTINUE TO MONITOR.
[2018-06-17 19:25] VITALS: BP 173/72
--- NOTE | 2018-06-17 20:39 | NUR ---
PT RESTING IN BED. ALERT AND ORIENTED AT THIS TIME. RESPIRATIONS EVEN ON RA, LUNGS CLEAR. #22 LFA INFUSING D5 1/2 @ 100 ML/HR. PT GIVEN MOUTH MOISTURIZER PER REQUEST. PT DENIES ANY FURTHER NEEDS AT THIS TIME. SAFETY PRECAUTIONS IN PLACE. CALL LIGHT WITHIN REACH. WILL CONTINUE TO MONITOR.
[2018-06-18 00:25] VITALS: BP 146/66
--- NOTE | 2018-06-18 00:27 | NUR ---
PT REFUSING CASTILLO AT THIS TIME, PT EDUCATED.
--- NOTE | 2018-06-18 03:53 | NUR ---
PT ASSISED TO THE BSC AND BACK INTO BED. PT COMPLAINS OF BEING HUNGRY AND ASKING FOR ICE CREAM. PT GIVEN CHOCOLATE ICE CREAM PER REQUEST. SAFETY PRECAUTIONS IN PLACE. WILL CONTINUE TO MONITOR.
[2018-06-18 04:40] VITALS: BP 164/73
[2018-06-18 05:18] LABS: HEMATOCRIT 35.1 % (37.0-47.0); HEMOGLOBIN 11.6 g/dl (12.0-16.0); IMMATURE GRANULOCYTES 0.2 % (0.0-5.0); MEAN CELL VOLUME 88.2 fL CALC (80.0-100.0); MEAN CORPUSCULAR HGB 29.1 pG CALC (26.0-32.0); NEUT# 4.03 thou/uL (2.00-7.15); RED BLOOD COUNT 3.98 mill/uL (4.20-5.60); RED CELL DISTRI WIDTH 14.2 % (11.5-15.5)
[2018-06-18 05:43] LABS: ALBUMIN 3.5 g/dL (3.2-5.0); ALKALINE PHOSPHATASE 84 u/l (38-126); ANION GAP 14 (6-22 (CALC)); BILIRUBIN, TOTAL 0.7 mg/dL (0.0-1.4); BUN 15 mg/dL (8-23); BUN/CREATININE RATIO 15 (12-20 (CALC)); CARBON DIOXIDE 33 mmol/l (22-30); CHLORIDE 89 mmol/l (95-108); GFR 53 ML/MIN (>=60 (CALC)); GFR FOR AFR.AMER. > 60 ML/MIN (>=60 (CALC)); POTASSIUM 3.3 mmol/l (3.5-5.1); SGOT/AST 19 u/l (9-36); SODIUM 133 mmol/l (137-146); TOTAL PROTEIN 6.4 g/dL (6.3-8.2)
--- NOTE | 2018-06-18 07:00 | NUR ---
REPORT RECEIVED FROM MORELIARN;PT RESTING IN SEMI FOWLERS POSITION;ALERT TO SELF ONLY, INTRODUCED SELF TO PT AND POC DISCUSSED;PT DENIES ANY CURRENT PAIN OR NEEDS;RESPIRATIONS EVEN AND UNLABORED ON RA;ENCOURAGED PT TO CALL FOR ASSISTANCE IF NEEDED;FALL PRECAUTIONS IN PLACE WITH BED IN THE LOWEST POSITION AND BED ALARM ON FOR SAFETY;CALL LIGHT IN REACH;WILL CONTINUE TO MONITOR
[2018-06-18 07:45] VITALS: BP 117/63; BP 162/71
--- NOTE | 2018-06-18 08:21 | NUR ---
AT BEDSIDE DISCUSSING POC.
--- NOTE | 2018-06-18 08:30 | NUR ---
PT RESTING IN SEMI FOWLERS POSITION WITH AT BEDSIDE;ALERT TO PERSON AND PLACE AT THIS TIME, FREQUENT REMINDERS REQUIRED;PT DENIES ANY CURRENT PAIN,PAIN SCALE AND REPORTING EDUCATED;ASSESSMENT COMPLETED;RESPIRATIONS EVEN AND UNLABORED ON RA,CLEAR LUNG SOUNDS;ABDOMEN SOFT ON PALPATION AND ACTIVE IN ALL 4 QUADRANTS;STRONG PEDAL PULSES;SKIN INTACT;#22G TO LEFT FOREARM INFUSING D5 1/2 @ 75ML/HR PER ORDER;TELE MONITORING IN PLACE;PT EDUCATED ON THE NEED FOR A UA SAMPLE AND VERBALIZES UNDERSTANDING;PT ENCOURAGED TO EXPRESS ANY NEEDS OR CONCERNS;FALL PRECAUTIONS REMAIN IN PLACE WITH BED ALARM ON FOR SAFETY;CALL LIGHT IN REACH;WILL CONTINUE TO MONITOR
--- NOTE | 2018-06-18 11:30 | NUR ---
PT RESTING IN SEMI FOWLERS POSITION WITH SPOUSE AT BEDSIDE;RESPIRATIONS EVEN AND UNLABORED ON RA;PT DENIES ANY CURRENT PAIN OR DISCOMFORTS;TELE MONITORING IN PLACE;IV FLUIDS CONTINUE TO INFUSE TO LEFT FOREARM WITH EASE;ASSESSMENT REMAINS UNCHARGED AT THIS TIME;FALL PRECAUTIONS IN PLACE WITH BED ALARM ON FOR SAFETY;CALL LIGHT IN REACH;WILL CONTINUE TO MONITOR
[2018-06-18 11:33] VITALS: BP 148/64
[2018-06-18 14:02] LABS: URINE BILIRUBIN - DIPSTICK NEGATIVE (NEGATIVE); URINE BLOOD DIPSTICK NEGATIVE (NEGATIVE); URINE COLOR YELLOW; URINE GLUCOSE - DIPSTICK NEGATIVE (NEGATIVE); URINE KETONE NEGATIVE (NEGATIVE); URINE LEUK ESTERASE NEGATIVE (Negative); URINE NITRITE - DIPSTICK NEGATIVE (Negative); URINE PH 5.5 (4.5-8.0); URINE PROTEIN - DIPSTICK NEGATIVE (NEG-TRACE); URINE SPECIFIC GRAVITY <=1.005; URINE UROBILINOGEN - DIPSTICK 0.2 E.U./dL (0.2)
[2018-06-18 14:04] LABS: URINE CLARITY CLEAR
--- NOTE | 2018-06-18 15:30 | NUR ---
PT RESTING IN SEMI FOWLERS POSITION WATCHING TV;PT DENIES ANY CURRENT PAIN OR NEEDS;IV FLUIDS CONTINUE TO INFUSE WELL TO LEFT FOREARM;PT REMAINS ALERT TO PERSON AND PLACE ONLY;TELE MONITORING IN PLACE;ENCOURAGED TO CALL FOR ASSISTANCE IF NEEDED;BED ALARM REMAINS IN PLACE FOR PT SAFETY;CALL LIGHT IN REACH;WILL CONTINUE TO MONITOR
--- NOTE | 2018-06-18 15:45 | NUR ---
PHYSICAL THERAPY AT BEDSIDE.
[2018-06-18 15:47] VITALS: BP 184/80
[2018-06-18 19:00] VITALS: BP 140/65
--- NOTE | 2018-06-18 19:06 | NUR ---
PT. SITTING UP IN BED WITH NO DISTRESS NOTED; A/A/O X2; ASSESSMENT COMPLETED; DENIES NEEDS/PAIN; BED ALARM ON FOR SAFETY PREC; INSTRUCTED TO CALL FOR ALL OOB NEEDS; ENCOURAGED TO CALL FOR ANY NEEDS; CALL LIGHT IS IN REACH.
--- NOTE | 2018-06-18 21:24 | NUR ---
PT. MEDICATED WITH SCHED SEROQUEL; DENIES NEEDS; SNACK PROVIDED; CALL LIGHT IS IN REACH; BED ALARM ON; WILL CONTINUE TO MONITOR.
--- NOTE | 2018-06-19 | NUR ---
PT. RESTING IN BED WITH NO DISTRESS NOTED; RESP EVEN AND UNLABORED; CALL LIGHT IS IN REACH; WILL CONTINUE TO MONITOR.
[2018-06-19 00:19] VITALS: BP 157/73
--- NOTE | 2018-06-19 01:59 | NUR ---
PT. RESTING IN BED IN SEMI-FOWLERS POSITION WITH EYES CLOSED; RESP EVEN AND UNLABORED; CALL LIGHT IS IN REACH.BED ALARM ON.
[2018-06-19 04:18] VITALS: BP 172/60
--- NOTE | 2018-06-19 04:18 | NUR ---
NOTIFIED MD OF MANUALLY B/P OF 172/60 WITH HR OF 60; NEW ORDERS RECEIVED AND TO BE CARRIED OUT; ALSO NOTIFIED HIM THAT PT. HAD NOT BEEN RESTARTED ON HOME B/P MEDICATIONS; MD TO ADDRESS THIS TODAY.
--- NOTE | 2018-06-19 04:57 | NUR ---
PT. MEDICATED WITH ORDERED APRESOLINE FOR B/P 172/60; WILL REASSESS;BED ALARM ON; CALL LIGHT IS IN REACH.
[2018-06-19 06:05] VITALS: BP 162/70
--- NOTE | 2018-06-19 06:15 | NUR ---
PT. REFUSES LAB WORK THIS AM;
--- NOTE | 2018-06-19 06:50 | NUR ---
REPORT RECIEVED FROM LOGAN MEJIA;PT RESTING IN SUPINE POSITION WITH SPOUSE AT BEDSIDE;PT ALERT TO SELF ONLY, ATTEMPTED TO RE-ORIENT BUT UNSUCCESSFUL;INTRODUCED SELF TO PT AND POC DISCUSSED PT REPORTS "WE DONT NEED A NURSE TODAY THANKS";RESPIRATIONS EVEN AND UNLABORED ON RA;TELE MONITORING IN PLACE;ENCOURAGED TO CALL FOR ASSISTANCE IF NEEDED;FALL PRECAUTIONS IN PLACE WITH BED ALARM ON FOR SAFETY;CALL LIGHT IN REACH;WILL CONTINUE TO MONITOR
[2018-06-19 07:50] VITALS: BP 182/93
--- NOTE | 2018-06-19 07:50 | NUR ---
PT RESTING AT BEDSIDE EATING BREAKFAST WITH SPOUSE;ALERT TO PERSON ONLY,WILL ATTEMPT TO RE-ORIENT NEEDED;PT GUARDED;VS OBTAINED AND ASSESSMENT COMPLETED;BP 182/93 HR 80;PT AGITATED PULLING AT WIRES AND BED ALARM,PT MEDICATED WITH PRN ATIVAN 1MG IVP;RESPIRATIONS EVEN AND UNLABORED ON RA,CLEAR LUNG SOUNDS NOTED;ABDOMEN SOFT ON PALPATION AND ACTIVE IN ALL 4 QUADRANTS;STRONG PEDAL PULSES;SKIN INTACT;TELE MONITORING IN PLACE;#22G TO LEFT FOREARM INFUSING D5 1/2 NS @ 75ML/HR,SITE APPEARS HEALTHY;PT DENIES ANY ADDITIONAL NEEDS AT THIS TIME AND IS ENCOURAGED TO CALL FOR ASSISTANCE IF NEEDED;BED ALARM REMAINS IN PLACE FOR PT SAFETY;CALL LIGHT IN REACH;WILL CONTINUE TO MONITOR
[2018-06-19 09:25] LABS: HEMATOCRIT 40.9 % (37.0-47.0); IMMATURE GRANULOCYTES 0.3 % (0.0-5.0); MEAN CELL VOLUME 90.7 fL CALC (80.0-100.0); MEAN CORPUSCULAR HGB 28.8 pG CALC (26.0-32.0); MEAN CORPUSCULAR HGB CONC 31.8 g/L CALC (32.0-36.0); NEUT# 5.62 thou/uL (2.00-7.15); RED BLOOD COUNT 4.51 mill/uL (4.20-5.60); RED CELL DISTRI WIDTH 14.5 % (11.5-15.5)
--- NOTE | 2018-06-19 09:42 | NUR ---
Pt seen this am for gait. She was sitting on edge of bed. Pt required encouragement to ambulated but was able to walk 3x75' with CGA holding onto IV pole and last walk without pole, gait was slow with flexed posture. Mild instability noted at times. Pt returned to chair with callbell in lap//alarm in place and DEVELOPMENT INTERN in room.
[2018-06-19 09:45] LABS: ANION GAP 16 (6-22 (CALC)); BUN 9 mg/dL (8-23); BUN/CREATININE RATIO 10 (12-20 (CALC)); CARBON DIOXIDE 30 mmol/l (22-30); CHLORIDE 96 mmol/l (95-108); CREATININE 0.9 mg/dL (0.5-1.0); GFR 60 ML/MIN (>=60 (CALC)); GFR FOR AFR.AMER. > 60 ML/MIN (>=60 (CALC)); POTASSIUM 3.7 mmol/l (3.5-5.1); SODIUM 138 mmol/l (137-146)
[2018-06-19 12:00] VITALS: BP 189/82
--- NOTE | 2018-06-19 12:00 | NUR ---
PT RESTING IN RECLINER, IN AND OUT OF SLEEP.UNWILLING TO WEAR HEART MONITOR AT THIS TIME;BP 189/82 HR 62, PT MEDICATED PER MED SCHEDULE FOR BP;PT DENIES ANY CURRENT PAIN JUST STATES "I WANNA GO HOME";RESPIRATIONS EVEN AND UNLABORED ON RA;IV FLUIDS CONTINUE TO INFUSE TO LEFT FOREARM WITH EASE;;FALL PRECAUTIONS REMAIN IN PLACE WITH BED ALARM ON FOR SAFETY;CALL LIGHT IN REACH;WILL CONTINUE TO MONITOR
[2018-06-19] MEDS ORDERED: BYSTOLIC5 MG PO (13:05)
[2018-06-19] MEDS ORDERED: ALPRAZOLAM0.5 MG PO (13:05)
--- NOTE | 2018-06-19 14:04 | NUR ---
WENT TO TALK TO PATIENT ABOUT HER DISCHARGE MEDICATION. HER WANTED TO KNOW IF PATIENT WAS STILL TAKING POTASSIUM BUT IT HAD BEEN DISCONTINUED. BOTH PATIENT AND HER WERE VERY WORRIED BECAUSE THEY SAID THEY WERE TOLD PATIENT WAS GOING TO BE DISCHARGED BY NOON. ASSURED THEM I WAS GOING TO INFORM THE NURSE TO BRIEF THEM. PATIENT DIDN'T HAVE ANY QUESTIONS AT THIS TIME.
[2018-06-19 14:38] VITALS: BP 170/65
--- NOTE | 2018-06-19 14:50 | NUR ---
ALL DISCHARGE INSTRUCTIONS PROVIDED AT THIS TIME TO PT AND SPOUSE;IV SITE REMOVED WITH CATHETER INTACT;PT ASSISTED WITH DRESSING AND WHEELCHAIR PROVIDED FOR DISCHARGE TO THE [facility].
--- NOTE | 2018-06-19 15:05 | NUR ---
Discharge instructions given. Patient verbalizes understanding of same. Discharged in stable condition via Wheelchair to [facility] with spouse. All belongings sent with pt. Pt discharged via wheelchair in stable condition accompanied by spouse to the [facility].
== END 2018-06-19 15:00 ==
LOC: MS2 10:22
PROVIDERS: ADMIT Internal Medicine Geriatric Medicine; ATTEND Internal Medicine Geriatric Medicine
DX: F29 Unspecified psychosis not due to a substance or known physiological condition (principal); I11.0 Hypertensive heart disease with heart failure; I50.9 Heart failure, unspecified; I48.2 Chronic atrial fibrillation; I25.10 Atherosclerotic heart disease of native coronary artery without angina pectoris; J44.9 Chronic obstructive pulmonary disease, unspecified; E03.9 Hypothyroidism, unspecified; K27.9 Peptic ulcer, site unspecified, unspecified as acute or chronic, without hemorrhage or perforation; K21.9 Gastro-esophageal reflux disease without esophagitis; F41.9 Anxiety disorder, unspecified; M19.90 Unspecified osteoarthritis, unspecified site; G89.29 Other chronic pain; F32.9 Major depressive disorder, single episode, unspecified; Z95.5 Presence of coronary angioplasty implant and graft; Z95.810 Presence of automatic (implantable) cardiac defibrillator; R41.0 Disorientation, unspecified; R44.2 Other hallucinations; F22 Delusional disorders
CPT/HCPCS: G0378; G0379; J2060

== ENCOUNTER 2018-06-24 07:51 | Observation (INO) | payer MEDICARE ==
[~2018-06-24] VITALS: Ht 154.9 cm; Wt 46.0 kg
--- NOTE | 2018-06-24 07:51 | NUR ---
PT ARRIVES VIA STRETCHER ALERT AND ORIENTED TO SELF, AND MONTH. STATES SHE IS IN AN AIRPORT . HAS HX OF PSYCHOSIS. PT C/O NON SYNCOPAL SLIP AND FALL
--- NOTE | 2018-06-24 08:30 | NUR ---
PATIENT DENIES ANY CHEST PAIN AT THIS TIME, STATES PRESSURE TO THROAT. AT BEDSIDE VERBAL ORDER TO GIVE NITRO SL. PATIENT REFUSED ALL FORMS OF NITRO DUE TO SEVERE HEADACHES.
[2018-06-24 08:50] LABS: HEMATOCRIT 38.4 % (37.0-47.0); HEMOGLOBIN 12.7 g/dl (12.0-16.0); IMMATURE GRANULOCYTES 0.3 % (0.0-5.0); MEAN CELL VOLUME 87.7 fL CALC (80.0-100.0); MEAN CORPUSCULAR HGB CONC 33.1 g/L CALC (32.0-36.0); NEUT# 5.08 thou/uL (2.00-7.15); RED BLOOD COUNT 4.38 mill/uL (4.20-5.60); RED CELL DISTRI WIDTH 13.8 % (11.5-15.5)
[2018-06-24 09:06] LABS: CREATININE 1.2 mg/dL (0.5-1.0); POTASSIUM 3.6 mmol/l (3.5-5.1)
--- NOTE | 2018-06-24 09:20 | NUR ---
PATIENT ALERT AND ORIENTED TO SELF. AT BEDSIDE, REPORTS FREQUENT FALL AND BEING DC FROM HOSPITAL ON 06/19/18. UPDATED ON WAIT TIME.
--- NOTE | 2018-06-24 09:31 | NUR ---
AT BEDSIDE TO DISCUSS RESULTS.
--- NOTE | 2018-06-24 10:19 | NUR ---
ATTEMPT MADE TO CALL REPORT, SPOKE TO MAYRA. REPORTS NURSE NOT AVAILABLE, WILL CALL BACK.
--- NOTE | 2018-06-24 10:33 | NUR ---
REPORT GIVEN TO LOGAN ESCOBEDO.
--- NOTE | 2018-06-24 10:55 | NUR ---
PATIENT TRANSPORTED TO [facility] VIA STRETCHER WITH TELE IN PLACE. LOGAN ESCOBEDO AT BEDSIDE. PATIENT IN STABLE CONDITION. CARE RELINQUISHED.
[2018-06-24 11:06] VITALS: BP 188/79
--- NOTE | 2018-06-24 12:14 | NUR ---
REPORT RECEIVED FROM GREGG, PT ALERT AND ORIENTED TO SELF AND PLACE, SITTING UP IN BED HAVING MEAL AT THIS TIME, DENIES PAIN, IVF INFUSING, TELE MONITOR IN PLACE, CALL CORTEZ IN REACH.
[2018-06-24] MEDS ORDERED: SPIRIVA RE1.25 MCG/A PO ×2 (12:27→12:30)
[2018-06-24] MEDS ORDERED: VENTOLIN HFA PO (12:39)
[2018-06-24] MEDS ORDERED: NAUZENE PO (12:49)
[2018-06-24 13:01] VITALS: BP 125/49
[2018-06-24 15:35] VITALS: BP 146/70
--- NOTE | 2018-06-24 16:00 | NUR ---
RESTING/RELAXING IN BED, NO C/O DISCOMFORT, NEEDS MET, CALL CORTEZ IN REACH.
[2018-06-24 19:02] VITALS: BP 158/68
--- NOTE | 2018-06-24 20:10 | NUR ---
REPORT RECIEVED FROM LOGAN BRAGG. PT IS AGITATED, WANTING TO KNOW WHERE HER IS AND WHY NO ONE IS TELLING HER HOW HE IS, STATING THAT HE MUST BE SINCE NO ONE WILL ANSWER HER. PT REPEATEDLY TRYING TO GET OUT OF BED STATING " I'M GOING TO LEAVE AND GO FIND MY SINCE NO ONE WILL TELL ME HOW HE IS". PT INFORMED THAT HER IS AT HOME. PT REFUSED TO BELEIVE THAT HER IS AT HOME. CALL TO INFORM HIM OF THE SITUATION, ORDERS RECIVED. PT SON ARRIVED AND CALL PT PT SEEMED CALM AFTER TALKING TO HER . BED ALARM ACTIVE FOR PT SAFETY. WILL CONTINUE TO MONITOR.
--- NOTE | 2018-06-25 | NUR ---
PT RESTING IN BED WITH EYES CLOSED. RESPIRATIONS EVEN AND UNLABORED ON RA. BED ALARM ACTIVE FOR PT SAFETY. WILL CONTINUE TO MONITOR.
[2018-06-25 00:15] VITALS: BP 122/57
[2018-06-25 04:05] VITALS: BP 150/71
--- NOTE | 2018-06-25 05:08 | NUR ---
PT RESTING IN BED EYES CLOSED. NO SIGNS OR SYMPTOMS OF DISTRESS. BED ALARM ACTIVE FOR PT SAFETY. WILL CONTINUE TO MONITOR.
[2018-06-25 05:46] LABS: HEMOGLOBIN 11.4 g/dl (12.0-16.0); IMMATURE GRANULOCYTES 0.2 % (0.0-5.0); MEAN CELL VOLUME 88.5 fL CALC (80.0-100.0); MEAN CORPUSCULAR HGB 29.7 pG CALC (26.0-32.0); MEAN CORPUSCULAR HGB CONC 33.5 g/L CALC (32.0-36.0); NEUT# 2.89 thou/uL (2.00-7.15); RED BLOOD COUNT 3.84 mill/uL (4.20-5.60)
[2018-06-25 06:03] LABS: ALBUMIN 3.3 g/dL (3.2-5.0); ALKALINE PHOSPHATASE 62 u/l (38-126); ANION GAP 12 (6-22 (CALC)); BILIRUBIN, TOTAL 0.7 mg/dL (0.0-1.4); BUN 11 mg/dL (8-23); BUN/CREATININE RATIO 13 (12-20 (CALC)); CARBON DIOXIDE 28 mmol/l (22-30); CHLORIDE 97 mmol/l (95-108); CREATININE 0.8 mg/dL (0.5-1.0); GFR > 60 ML/MIN (>=60 (CALC)); GFR FOR AFR.AMER. > 60 ML/MIN (>=60 (CALC)); POTASSIUM 3.4 mmol/l (3.5-5.1); SGOT/AST 17 u/l (9-36); SODIUM 133 mmol/l (137-146); TOTAL PROTEIN 6.2 g/dL (6.3-8.2)
--- NOTE | 2018-06-25 07:38 | NUR ---
REPORT RECEIVED FROM LOGAN THIBODEAUX. PT SUPINE IN BED. SLEEPING. BED ALARM SET FOR SAFETY. CALL LIGHT WITHIN REACH.
--- NOTE | 2018-06-25 08:30 | NUR ---
DR. VALLE IN TO SEE PT. PLAN OF CARE UPDATED.
[2018-06-25 10:32] VITALS: BP 187/71
[2018-06-25 15:21] VITALS: BP 198/86
--- NOTE | 2018-06-25 16:01 | NUR ---
BP 198/86, DR. VALLE NOTIFIED. ORDER FOR CLONIDINE 0.2 MG PO X 1 NOW AND THEN 0.1 MG PO Q8 PRN SBP >160.
[2018-06-25 19:00] VITALS: BP 181/79
--- NOTE | 2018-06-25 19:18 | NUR ---
REPORT RECIEVED FROM LOGAN RODRÍGUEZ. PT RESTING IN BED WITH EYES CLOSED. RESPIRATIONS EVEN AND UNLABORED ON RA. WHEN ASKING PT HOW SHE IS FEELING, PT STATES " I DON'T FEEL BAD, I JUST ACHE ALL OVER". ASSISTED PT TO BSC, PT HAD A SMALL BM, ASSISTED PT BACK INTO BED. PT SEEMS CONFUSED AT TIMES. BED ALARM ACTIVE FOR PT SAFETY. CALL LIGHT WITHIN REACH. WILL CONTINUE TO MONITOR.
[2018-06-25 23:56] VITALS: BP 136/72
--- NOTE | 2018-06-26 01:21 | NUR ---
PT RESTING IN BED WITH EYES CLOSED. RESPIRATIONS EVEN AND UNLABORED ON RA. BED ALARM ACTIVE FOR PT SAFETY. WILL CONTINUE TO MONITOR.
--- NOTE | 2018-06-26 03:50 | NUR ---
ASSISSTED PT TO THE BSC PER PT REQUEST. ASSISTED PT BACK TO BED. PT GATE UNSTEADY. BED ALARM ACTIVE FOR PT SAFETY. WILL CONTINUE TO MONITOR.
[2018-06-26 04:22] VITALS: BP 163/74
--- NOTE | 2018-06-26 07:00 | NUR ---
SHIFT CHANGE REPORT, PT AWAKE AND ALERT RESTING IN BED, NO C/O DISCOMFORT, IVF INFUSING, TELE MONITOR IN PLACE, BED ALARM ON AND CALL CORTEZ IN REACH.
[2018-06-26 08:33] VITALS: BP 135/62
[2018-06-26 11:10] VITALS: BP 105/60
--- NOTE | 2018-06-26 11:38 | NUR ---
SITTING UP IN RECLINER, SET UP FOR MEAL, ALL NEEDS ADDRESSED, BODY ALARM IN PLACE.
[2018-06-26 15:13] VITALS: BP 166/74
--- NOTE | 2018-06-26 16:00 | NUR ---
ASSISTED TO BSC THEN TO RECLINER, ALL NEEDS ADDRESSED, BED ALARM ON AND CALL CORTEZ IN REACH.
--- NOTE | 2018-06-26 19:00 | NUR ---
RECEIVED REPORT FROM DAY NURSE. PT RESTING IN THE CHAIR WITH EYES CLOSED NO S/S OF DISTRESS NOTED. CALL CORTEZ IN REACH. WILL CONTINUE TO MONITOR.
[2018-06-26 20:00] VITALS: BP 162/71
--- NOTE | 2018-06-26 20:30 | NUR ---
PT RESTING IN THE CHAIR AT THIS TIME. PT IS A&O x3 WITH TIMES OF CONFUSION. ASSMENT COMPLETED AT THIS TIME. LUNG SOUND CLEAR, BOWELS SOUNDS ACTIVE, HEART SOUNDS IRREGULAR, NO SWELLING OR EDEMA NOTED. IV INFUSING WELL. PT REFUSED TO HAVE EMS SITE CHANGED. MD AWARE. NO NEEDS AT THIS TIME. CALL CORTEZ AND BED ALARM IN PLACE. WILL CONTINUE TO MONITOR.
--- NOTE | 2018-06-26 23:45 | NUR ---
PT SET OFF BED ALARM. PT REQUESTING TO "PISS". PT HELPED WITH 1 ASSIST TO BSC. AND THEN SETTLED BACK INTO BED. BED ALARM IN PLACE.
[2018-06-27] VITALS (7 sets, daily range): BP systolic 139–192; BP diastolic 62–84
--- NOTE | 2018-06-27 04:00 | NUR ---
PT RESTING IN BED WITH EYES CLOSED. NO S/S OF DISTRESS NOTED. CALL CORTEZ IN REACH. BED ALARM IN PLACE. WILL CONTINUE TO MONITOR.
[2018-06-27 07:14] LABS: HEMATOCRIT 35.3 % (37.0-47.0); HEMOGLOBIN 11.1 g/dl (12.0-16.0); IMMATURE GRANULOCYTES 0.2 % (0.0-5.0); MEAN CELL VOLUME 91.7 fL CALC (80.0-100.0); MEAN CORPUSCULAR HGB 28.8 pG CALC (26.0-32.0); MEAN CORPUSCULAR HGB CONC 31.4 g/L CALC (32.0-36.0); NEUT# 2.29 thou/uL (2.00-7.15); RED BLOOD COUNT 3.85 mill/uL (4.20-5.60); RED CELL DISTRI WIDTH 14.1 % (11.5-15.5)
[2018-06-27 07:21] LABS: ANION GAP 11 (6-22 (CALC)); BUN 5 mg/dL (8-23); BUN/CREATININE RATIO 6 (12-20 (CALC)); CARBON DIOXIDE 29 mmol/l (22-30); CHLORIDE 101 mmol/l (95-108); CREATININE 0.8 mg/dL (0.5-1.0); GFR > 60 ML/MIN (>=60 (CALC)); GFR FOR AFR.AMER. > 60 ML/MIN (>=60 (CALC)); SODIUM 137 mmol/l (137-146)
[2018-06-27 07:24] LABS: POTASSIUM 4.2 mmol/l (3.5-5.1)
--- NOTE | 2018-06-27 07:50 | NUR ---
SHIFT CHANGE REPORT, PT AWAKE, ALERT AND DISORIENTED, REORIENTED TO PLACE AND TIME, NO C/O DISCOMFORT, IVF INFUSING, TELE MONITOR IN PLACE, BED ALARM ON, SPOUSE VISITING AT THIS TIME, CALL CORTEZ IN REACH.
--- NOTE | 2018-06-27 10:05 | NUR ---
RESTING IN BED AT THIS TIME WITH EYES CLOSED BUT NOT SLEEPING, HALUCINATING STATING WOMAN IN W/C WAS IN HER ROOM AND HER SPOUSE WENT IN BR WITH STRANGER THEN LEFT WITHOUT SAYING A WORD TO HER AND THAT SHE WAS VERY UPSET ABOUT THESE ACTIONS OF HER . SPOUSE IS RIGHT BY HER BEDSIDE AT THIS BUT OUT OF HER PERIPHERAL VISION, SHE WAS REORIENTED AND DIRECTED TO WHERE HER SPOUSE IS SITTING AND VERIFIED HE IS IN ROOM. SHE IS CALM AT THIS TIME, BED ALARM ON.
--- NOTE | 2018-06-27 16:00 | NUR ---
SITTING UP ON SIDE OF BED, ALL NEEDS ADDRESSED, ALARM ON AND CALL CORTEZ IN REACH.
--- NOTE | 2018-06-27 19:00 | NUR ---
RECEIVED REPORT FROM DAY NURSE. PT VISTITING WITH SON AT BEDSIDE, SITTING ON THE EDGE OF THE BED. NO NEEDS A THIS TIME.
--- NOTE | 2018-06-27 22:45 | NUR ---
PT RESTING IN BED WITH EYES CLOSED. WAKES TO VERBAL STIMULI. ASSESMENT COPMLETED AT THIS TIME(SEE INTERVENTIONS) LUNGS CLEAR, HEART PACED, BOWEL SOUNDS ACTIVE. NO SWELLING OR EDEMA. IV INFUSING WELL. PT IS CALM AND DROWSY TONIGHT WITH BOUTS OF CONFUSION. EASILY REDIRECTED. BED ALARM IN PLACE. WILL CONTINUE TO MONITOR.
[2018-06-28 00:11] VITALS: BP 188/79
--- NOTE | 2018-06-28 00:25 | NUR ---
PT SET BED ALARM OFF. NOT ATTEMPTING TO GET OUT OF BED JUST SAT UP WONDERING WHAT WAS GOING IN. PT UPDATED AND REDIRECTED. PT UP TO RESTROOM AND SETTLED BACK INTO BED. NO OTHER NEEDS AT THIS TIME.
--- NOTE | 2018-06-28 04:00 | NUR ---
PT APPEARS ASLEEP AT THIS TIME. RESP EVEN AND UNLABORED. CALL CORTEZ IN REACH. WILL CONTINUE TO MONITOR.
[2018-06-28 05:44] VITALS: BP 179/74
[2018-06-28 06:28] VITALS: BP 182/79
[2018-06-28 08:01] VITALS: BP 192/76
[2018-06-28 09:28] VITALS: BP 192/76
--- NOTE | 2018-06-28 11:09 | NUR ---
Discharge instructions given. Patient verbalizes understanding of same. Discharged in good condition via Wheelchair to [facility] with spouse. All belongings sent with pt.
== END 2018-06-28 11:09 ==
LOC: ED 07:51 → ED-I 09:18 → ED 09:39 → MS2 09:40
PROVIDERS: Family Medicine; ADMIT Internal Medicine Geriatric Medicine; ATTEND Internal Medicine Geriatric Medicine
DX: R41.0 Disorientation, unspecified (principal); S00.03XA Contusion of scalp, initial encounter; I10 Essential (primary) hypertension; I25.10 Atherosclerotic heart disease of native coronary artery without angina pectoris; I65.22 Occlusion and stenosis of left carotid artery; J44.9 Chronic obstructive pulmonary disease, unspecified; I48.91 Unspecified atrial fibrillation; F41.1 Generalized anxiety disorder; F32.9 Major depressive disorder, single episode, unspecified; E03.9 Hypothyroidism, unspecified; K27.9 Peptic ulcer, site unspecified, unspecified as acute or chronic, without hemorrhage or perforation; K21.9 Gastro-esophageal reflux disease without esophagitis; W01.0XXA Fall on same level from slipping, tripping and stumbling without subsequent striking against object, initial encounter; Y92.099 Unspecified place in other non-institutional residence as the place of occurrence of the external cause; Z95.0 Presence of cardiac pacemaker; Z95.5 Presence of coronary angioplasty implant and graft; R07.9 Chest pain, unspecified
CPT/HCPCS: G0378; J2060